=== PATIENT | male | born 1985 | race Caucasian/White ===

== ENCOUNTER 2018-07-29 17:26 | Emergency (ER) | payer MEDICAID ==
[~2018-07-29] VITALS: Ht 157.5 cm; Wt 66.0 kg
[2018-07-29] MEDS ORDERED: hyDROXYzine 50 mg/ml injection ***IM only IM ONE (17:55)
[2018-07-29 18:16] VITALS: BP 149/89
[2018-07-30] MEDS ORDERED: PALI117D IM (10:06)
== END 2018-07-29 18:17 | disposition home or self-care (01) ==
LOC: ER 17:27
DX: F41.9 Anxiety disorder, unspecified (principal); F12.90 Cannabis use, unspecified, uncomplicated; F15.90 Other stimulant use, unspecified, uncomplicated; F20.9 Schizophrenia, unspecified; Z98.890 Other specified postprocedural states; Z56.0 Unemployment, unspecified; Z88.0 Allergy status to penicillin; Z79.899 Other long term (current) drug therapy
CPT/HCPCS: 96372; 99284; J3410

== ENCOUNTER 2018-07-30 09:42 | Emergency (ER) | payer MEDICAID ==
[~2018-07-30] VITALS: Ht 157.5 cm; Wt 65.8 kg
[2018-07-30] MEDS ORDERED: PALI117D IM (10:06)
[2018-07-30 10:37] LABS: BASOPHILS % (AUTO) 0.4 % (0-1); EOSINOPHILS # (AUTO) 0.1 X10'3 (0-0.9); EOSINOPHILS % (AUTO) 1.2 % (0-6); HEMATOCRIT 40.3 % (42.0-52.0); HEMOGLOBIN 13.8 g/dl (14.0-17.9); LYMPHOCYTES # (AUTO) 1.2 X10'3 (1.1-4.8); LYMPHOCYTES % (AUTO) 20.4 % (21-51); MEAN CORPUSCULAR HEMOGLOBIN 30.2 PG (27.0-31.0); MEAN CORPUSCULAR HGB CONC 34.2 % (33.0-36.5); MEAN CORPUSCULAR VOLUME 88.3 FL (78-98); MEAN PLATELET VOLUME 8.2 FL (7.4-10.4); MONOCYTES # (AUTO) 0.8 X10'3 (0-0.9); MONOCYTES % (AUTO) 13.6 % (2-12); NEUTROPHILS # (AUTO) 3.7 X10'3 (1.8-7.7); NEUTROPHILS % (AUTO) 64.4 % (42-75); PLATELET COUNT 268 X10'3 (140-440); RED BLOOD COUNT 4.56 X10'6 (4.70-6.10); RED CELL DISTRIBUTION WIDTH 13.1 % (11.5-14.5); WHITE BLOOD COUNT 5.7 X10'3 (4.5-11.0)
[2018-07-30 10:49] LABS: ALANINE AMINOTRANSFERASE 30 U/L (12-78); ALBUMIN 3.9 G/DL (3.4-5.0); ALKALINE PHOSPHATASE 73 IU/L (46-116); ANION GAP 9 (8-16); ASPARTATE AMINO TRANSFERASE 28 U/L (10-37); BILIRUBIN,TOTAL 0.4 MG/DL (0.1-1.0); BLOOD UREA NITROGEN 18 MG/DL (7-18); BUN/CREATININE RATIO 18.9 (5.4-32.0); CALCIUM 8.5 MG/DL (8.5-10.1); CHLORIDE 100 MMOL/L (99-107); CREATININE 0.95 MG/DL (0.60-1.10); GLUCOSE 85 MG/DL (70-104); POTASSIUM 4.1 MMOL/L (3.5-5.1); SODIUM 138 MMOL/L (135-145); TOTAL PROTEIN 7.7 G/DL (6.4-8.2); eGFR > 90 ML/MIN
[2018-07-30 10:52] LABS: URINE AMPHETAMINE SCREEN NEGATIVE (Neg); URINE BARBITUATE SCREEN NEGATIVE (Neg); URINE BENZODIAZEPINES SCREEN NEGATIVE (Neg); URINE CANNABINOID SCREEN POSITIVE (Neg); URINE COCAINE SCREEN NEGATIVE (Neg); URINE METHADONE SCREEN NEGATIVE (Neg); URINE OPIATE SCREEN NEGATIVE (Neg); URINE PHENCYCLIDINE SCREEN NEGATIVE (Neg)
[2018-07-30 10:59] LABS: ETHANOL < 0.010 GM/DL (0.0-0.010)
[2018-07-31] MEDS ORDERED: ESCI10TA PO (08:15)
[2018-07-31] MEDS ORDERED: LURA40TA3 PO (08:15)
[2018-07-31] MEDS: citalopram 20mg tablet PO SCH (08:47)
[2018-07-31] MEDS: lurasidone 20mg tablet PO SCH (08:48)
[2018-07-31 16:21] LABS: CLARITY,URINE CLEAR (Clear); COLOR,URINE YELLOW (Yellow); GLUCOSE, URINE NEGATIVE (Neg); KETONES,URINE NEGATIVE (Neg); LEUKOCYTE ESTERASE ,URINE NEGATIVE (Neg); NITRITES, URINE NEGATIVE (Neg); OCCULT BLOOD,URINE NEGATIVE (Neg); PH,URINE 6.5 (4.8-8.0); PROTEIN,URINE NEGATIVE (Neg); UROBILINOGEN,URINE 0.2 E.U/dL (0.2-1.0)
[2018-07-31 16:22] LABS: UA COLLECTION TYPE NON-SPECIFIED
[2018-08-01] MEDS: lurasidone 20mg tablet PO SCH (08:31)
[2018-08-01] MEDS: citalopram 20mg tablet PO SCH (08:31)
[2018-08-02] MEDS: citalopram 20mg tablet PO SCH (08:20)
[2018-08-02] MEDS: lurasidone 20mg tablet PO SCH (08:20)
[2018-08-02 11:27] VITALS: BP 105/53
== END 2018-08-02 11:33 ==
LOC: ER 09:42
DX: R45.851 Suicidal ideations (principal); F41.9 Anxiety disorder, unspecified; F32.9 Major depressive disorder, single episode, unspecified; F20.9 Schizophrenia, unspecified; F12.90 Cannabis use, unspecified, uncomplicated; F15.90 Other stimulant use, unspecified, uncomplicated; Z98.890 Other specified postprocedural states; Z59.0 Homelessness; Z56.0 Unemployment, unspecified; Z88.0 Allergy status to penicillin; Z79.899 Other long term (current) drug therapy
CPT/HCPCS: 36415; 80053; 80305; 80320; 81003; 84443; 85025; 99285

== ENCOUNTER 2018-08-24 14:17 | Emergency (ER) | payer MEDICAID ==
[~2018-08-24 14:17] MED LIST: ESCI10TA PO; LURA40TA3 PO; PALI117D IM
== END 2018-08-24 16:00 | disposition left against medical advice (07) ==
LOC: ER 14:17
DX: F41.9 Anxiety disorder, unspecified (principal); Z53.21 Procedure and treatment not carried out due to patient leaving prior to being seen by health care provider

== ENCOUNTER 2018-08-24 19:38 | Emergency (ER) | payer MEDICAID ==
[~2018-08-24] VITALS: Ht 157.5 cm; Wt 67.0 kg
[2018-08-24 19:48] VITALS: BP 127/91
== END 2018-08-24 22:55 | disposition left against medical advice (07) ==
LOC: ER 19:38
DX: F41.9 Anxiety disorder, unspecified (principal); Z53.21 Procedure and treatment not carried out due to patient leaving prior to being seen by health care provider

== ENCOUNTER 2018-08-29 02:09 | Emergency (ER) | payer MEDICAID ==
[~2018-08-29] VITALS: Ht 157.5 cm; Wt 67.0 kg
[2018-08-29 02:25] VITALS: BP 138/87
[2018-08-29 03:22] LABS: BASOPHILS % (AUTO) 0.2 % (0-1); EOSINOPHILS # (AUTO) 0.2 X10'3 (0-0.9); EOSINOPHILS % (AUTO) 3.3 % (0-6); HEMATOCRIT 38.8 % (42.0-52.0); HEMOGLOBIN 13.4 g/dl (14.0-17.9); LYMPHOCYTES # (AUTO) 1.8 X10'3 (1.1-4.8); LYMPHOCYTES % (AUTO) 33.6 % (21-51); MEAN CORPUSCULAR HEMOGLOBIN 30.3 PG (27.0-31.0); MEAN CORPUSCULAR HGB CONC 34.4 % (33.0-36.5); MEAN CORPUSCULAR VOLUME 88.1 FL (78-98); MEAN PLATELET VOLUME 8.1 FL (7.4-10.4); MONOCYTES # (AUTO) 0.7 X10'3 (0-0.9); NEUTROPHILS # (AUTO) 2.7 X10'3 (1.8-7.7); NEUTROPHILS % (AUTO) 49.9 % (42-75); PLATELET COUNT 272 X10'3 (140-440); RED BLOOD COUNT 4.41 X10'6 (4.70-6.10); RED CELL DISTRIBUTION WIDTH 13.3 % (11.5-14.5); WHITE BLOOD COUNT 5.4 X10'3 (4.5-11.0)
[2018-08-29 03:23] LABS: CLARITY,URINE CLEAR (Clear); COLOR,URINE YELLOW (Yellow); GLUCOSE, URINE NEGATIVE (Neg); KETONES,URINE NEGATIVE (Neg); LEUKOCYTE ESTERASE ,URINE NEGATIVE (Neg); NITRITES, URINE NEGATIVE (Neg); OCCULT BLOOD,URINE NEGATIVE (Neg); PROTEIN,URINE NEGATIVE (Neg); UROBILINOGEN,URINE 0.2 E.U/dL (0.2-1.0)
[2018-08-29 03:30] LABS: UA COLLECTION TYPE CLN CATCH MIDSTREAM
[2018-08-29 03:35] LABS: URINE AMPHETAMINE SCREEN NEGATIVE (Neg); URINE BARBITUATE SCREEN NEGATIVE (Neg); URINE BENZODIAZEPINES SCREEN NEGATIVE (Neg); URINE CANNABINOID SCREEN NEGATIVE (Neg); URINE COCAINE SCREEN NEGATIVE (Neg); URINE METHADONE SCREEN NEGATIVE (Neg); URINE OPIATE SCREEN NEGATIVE (Neg); URINE PHENCYCLIDINE SCREEN NEGATIVE (Neg)
[2018-08-29 03:46] LABS: ALANINE AMINOTRANSFERASE 22 U/L (12-78); ALBUMIN 3.8 G/DL (3.4-5.0); ALKALINE PHOSPHATASE 67 IU/L (46-116); ANION GAP 5 (8-16); ASPARTATE AMINO TRANSFERASE 22 U/L (10-37); BILIRUBIN,TOTAL 0.3 MG/DL (0.1-1.0); BLOOD UREA NITROGEN 11 MG/DL (7-18); BUN/CREATININE RATIO 13.9 (5.4-32.0); CALCIUM 9.1 MG/DL (8.5-10.1); CHLORIDE 101 MMOL/L (99-107); CREATININE 0.79 MG/DL (0.60-1.10); GLUCOSE 95 MG/DL (70-104); POTASSIUM 3.7 MMOL/L (3.5-5.1); SODIUM 134 MMOL/L (135-145); TOTAL CARBON DIOXIDE 27.8 MMOL/L (24-32); TOTAL PROTEIN 7.5 G/DL (6.4-8.2); eGFR > 90 ML/MIN
[2018-08-29] MEDS ORDERED: LORazepam 1 MG tablet PO ONE (03:50)
[2018-08-29 03:53] LABS: ETHANOL < 0.010 GM/DL (0.0-0.010)
== END 2018-08-29 04:41 | disposition home or self-care (01) ==
LOC: ER 02:10
DX: F20.9 Schizophrenia, unspecified (principal); F32.9 Major depressive disorder, single episode, unspecified; F19.10 Other psychoactive substance abuse, uncomplicated; R45.851 Suicidal ideations; F41.9 Anxiety disorder, unspecified; F12.90 Cannabis use, unspecified, uncomplicated; F15.90 Other stimulant use, unspecified, uncomplicated; Z59.0 Homelessness; Z56.0 Unemployment, unspecified; Z88.0 Allergy status to penicillin; Z79.899 Other long term (current) drug therapy
CPT/HCPCS: 36415; 80053; 80305; 80320; 81003; 84443; 85025; 99284

== ENCOUNTER 2018-08-30 06:39 | Emergency (ER) | payer MEDICAID ==
[~2018-08-30] VITALS: Ht 157.5 cm; Wt 65.9 kg
[2018-08-30 10:35] LABS: URINE AMPHETAMINE SCREEN NEGATIVE (Neg); URINE BARBITUATE SCREEN NEGATIVE (Neg); URINE BENZODIAZEPINES SCREEN NEGATIVE (Neg); URINE CANNABINOID SCREEN NEGATIVE (Neg); URINE COCAINE SCREEN NEGATIVE (Neg); URINE METHADONE SCREEN NEGATIVE (Neg); URINE OPIATE SCREEN NEGATIVE (Neg); URINE PHENCYCLIDINE SCREEN NEGATIVE (Neg)
== END 2018-08-30 15:50 | disposition home or self-care (01) ==
LOC: ER 06:39
DX: F20.9 Schizophrenia, unspecified (principal); F32.9 Major depressive disorder, single episode, unspecified; R45.851 Suicidal ideations; F41.9 Anxiety disorder, unspecified; F12.90 Cannabis use, unspecified, uncomplicated; F15.90 Other stimulant use, unspecified, uncomplicated; Z59.0 Homelessness; Z56.0 Unemployment, unspecified; Z98.890 Other specified postprocedural states; Z88.0 Allergy status to penicillin; Z79.899 Other long term (current) drug therapy
CPT/HCPCS: 80305; 99285

== ENCOUNTER 2018-09-02 13:06 | Emergency (ER) | payer MEDICAID ==
[~2018-09-02] VITALS: Ht 157.5 cm; Wt 65.9 kg
[2018-09-02 13:32] VITALS: BP 133/84
[2018-09-02] MEDS ORDERED: ondansetron 4mg rapidly disintigrating tab PO ONE (15:50)
[2018-09-02] MEDS ORDERED: MAGN296S50 PO (15:51)
[2018-09-02] MEDS ORDERED: BISA-155 PO (15:51)
[2018-09-02] MEDS ORDERED: ONDA4TAB9 SL (15:51)
== END 2018-09-02 16:05 | disposition home or self-care (01) ==
LOC: ER 13:06
DX: R10.84 Generalized abdominal pain (principal); R11.2 Nausea with vomiting, unspecified; Z59.0 Homelessness; Z56.0 Unemployment, unspecified; Z98.890 Other specified postprocedural states; Z88.0 Allergy status to penicillin; Z79.899 Other long term (current) drug therapy
CPT/HCPCS: 99283

== ENCOUNTER 2018-09-03 08:30 | Emergency (ER) | payer MEDICAID ==
[~2018-09-03] VITALS: Ht 157.5 cm; Wt 66.2 kg
[~2018-09-03 08:30] MED LIST changes: +BISA-155 PO; +MAGN296S50 PO; +ONDA4TAB9 SL
[2018-09-03 09:27] LABS: BASOPHILS % (AUTO) 0.2 % (0-1); EOSINOPHILS # (AUTO) 0.1 X10'3 (0-0.9); EOSINOPHILS % (AUTO) 2.6 % (0-6); HEMATOCRIT 38.7 % (42.0-52.0); HEMOGLOBIN 13.1 g/dl (14.0-17.9); LYMPHOCYTES # (AUTO) 1.1 X10'3 (1.1-4.8); LYMPHOCYTES % (AUTO) 30.2 % (21-51); MEAN CORPUSCULAR HEMOGLOBIN 29.9 PG (27.0-31.0); MEAN CORPUSCULAR HGB CONC 33.9 % (33.0-36.5); MEAN CORPUSCULAR VOLUME 88.3 FL (78-98); MEAN PLATELET VOLUME 8.3 FL (7.4-10.4); MONOCYTES # (AUTO) 0.7 X10'3 (0-0.9); MONOCYTES % (AUTO) 18.7 % (2-12); NEUTROPHILS # (AUTO) 1.8 X10'3 (1.8-7.7); NEUTROPHILS % (AUTO) 48.3 % (42-75); PLATELET COUNT 262 X10'3 (140-440); RED BLOOD COUNT 4.38 X10'6 (4.70-6.10); RED CELL DISTRIBUTION WIDTH 13.1 % (11.5-14.5); WHITE BLOOD COUNT 3.7 X10'3 (4.5-11.0)
[2018-09-03 09:43] LABS: ALANINE AMINOTRANSFERASE 24 U/L (12-78); ALBUMIN 3.8 G/DL (3.4-5.0); ALBUMIN/GLOBULIN RATIO 1.1 (1.1-1.5); ALKALINE PHOSPHATASE 60 IU/L (46-116); ANION GAP 7 (8-16); ASPARTATE AMINO TRANSFERASE 15 U/L (10-37); BILIRUBIN,TOTAL 0.2 MG/DL (0.1-1.0); BLOOD UREA NITROGEN 10 MG/DL (7-18); BUN/CREATININE RATIO 11.6 (5.4-32.0); CALCIUM 8.7 MG/DL (8.5-10.1); CHLORIDE 102 MMOL/L (99-107); CREATININE 0.86 MG/DL (0.60-1.10); ETHANOL < 0.010 GM/DL (0.0-0.010); GLUCOSE 87 MG/DL (70-104); POTASSIUM 3.8 MMOL/L (3.5-5.1); SODIUM 138 MMOL/L (135-145); TOTAL CARBON DIOXIDE 29.5 MMOL/L (24-32); TOTAL PROTEIN 7.3 G/DL (6.4-8.2); eGFR > 90 ML/MIN
[2018-09-03 10:44] LABS: URINE AMPHETAMINE SCREEN NEGATIVE (Neg); URINE BARBITUATE SCREEN NEGATIVE (Neg); URINE BENZODIAZEPINES SCREEN NEGATIVE (Neg); URINE CANNABINOID SCREEN NEGATIVE (Neg); URINE COCAINE SCREEN NEGATIVE (Neg); URINE METHADONE SCREEN NEGATIVE (Neg); URINE OPIATE SCREEN NEGATIVE (Neg); URINE PHENCYCLIDINE SCREEN NEGATIVE (Neg)
[2018-09-03 18:06] LABS: CLARITY,URINE CLEAR (Clear); COLOR,URINE YELLOW (Yellow); GLUCOSE, URINE NEGATIVE (Neg); KETONES,URINE NEGATIVE (Neg); LEUKOCYTE ESTERASE ,URINE NEGATIVE (Neg); NITRITES, URINE NEGATIVE (Neg); OCCULT BLOOD,URINE NEGATIVE (Neg); PROTEIN,URINE NEGATIVE (Neg); UROBILINOGEN,URINE 0.2 E.U/dL (0.2-1.0)
[2018-09-03 18:09] LABS: UA COLLECTION TYPE NON-SPECIFIED
[2018-09-03] MEDS ORDERED: diphenhydrAMINE 25mg capsule PO ONE (19:40)
[2018-09-03] MEDS ORDERED: ibuprofen 200mg tablet PO ONE (20:15)
[2018-09-04 11:26] VITALS: BP 116/44
== END 2018-09-04 09:45 ==
LOC: ER 08:31
DX: F29 Unspecified psychosis not due to a substance or known physiological condition (principal); F41.9 Anxiety disorder, unspecified; F32.9 Major depressive disorder, single episode, unspecified; F20.9 Schizophrenia, unspecified; Z88.0 Allergy status to penicillin; Z56.0 Unemployment, unspecified; Z59.0 Homelessness
CPT/HCPCS: 36415; 80053; 80305; 80320; 81003; 84443; 85025; 99285; Q0163

== ENCOUNTER 2018-10-29 08:59 | Emergency (ER) | payer MEDICAID ==
[~2018-10-29] VITALS: Ht 154.9 cm; Wt 65.0 kg
[~2018-10-29 08:59] MED LIST changes: -BISA-155 PO; -ESCI10TA PO; -LURA40TA3 PO; -MAGN296S50 PO; -ONDA4TAB9 SL
[2018-10-29] MEDS ORDERED: DIPH25CA46 PO (09:37)
[2018-10-29] MEDS ORDERED: ARIP400S2 IM (09:39)
[2018-10-29] MEDS ORDERED: BENZ1TAB7 PO (09:39)
--- NOTE | 2018-10-29 09:53 | NUR ---
patient on bed awake,room checked,patient pleasant to RN.
--- NOTE | 2018-10-29 10:06 | NUR ---
patient aware that ua is needed.
[2018-10-29 10:20] LABS: BASOPHILS % (AUTO) 0.2 % (0-1); EOSINOPHILS # (AUTO) 0.1 X10'3 (0-0.9); EOSINOPHILS % (AUTO) 2.2 % (0-6); HEMATOCRIT 35.9 % (42.0-52.0); HEMOGLOBIN 12.4 g/dl (14.0-17.9); LYMPHOCYTES # (AUTO) 0.9 X10'3 (1.1-4.8); LYMPHOCYTES % (AUTO) 22.2 % (21-51); MEAN CORPUSCULAR HEMOGLOBIN 30.5 PG (27.0-31.0); MEAN CORPUSCULAR HGB CONC 34.6 % (33.0-36.5); MEAN CORPUSCULAR VOLUME 88.2 FL (78-98); MEAN PLATELET VOLUME 8.4 FL (7.4-10.4); MONOCYTES # (AUTO) 0.5 X10'3 (0-0.9); MONOCYTES % (AUTO) 11.3 % (2-12); NEUTROPHILS # (AUTO) 2.6 X10'3 (1.8-7.7); NEUTROPHILS % (AUTO) 64.1 % (42-75); PLATELET COUNT 242 X10'3 (140-440); RED BLOOD COUNT 4.07 X10'6 (4.70-6.10); RED CELL DISTRIBUTION WIDTH 13.2 % (11.5-14.5); WHITE BLOOD COUNT 4.1 X10'3 (4.5-11.0)
[2018-10-29 10:39] LABS: ALANINE AMINOTRANSFERASE 19 U/L (12-78); ALBUMIN 3.7 G/DL (3.4-5.0); ALBUMIN/GLOBULIN RATIO 1.1 (1.1-1.5); ALKALINE PHOSPHATASE 56 IU/L (46-116); ANION GAP 8 (8-16); ASPARTATE AMINO TRANSFERASE 12 U/L (10-37); BILIRUBIN,TOTAL 0.4 MG/DL (0.1-1.0); BLOOD UREA NITROGEN 20 MG/DL (7-18); BUN/CREATININE RATIO 19.2 (5.4-32.0); CALCIUM 8.3 MG/DL (8.5-10.1); CHLORIDE 103 MMOL/L (99-107); CREATININE 1.04 MG/DL (0.60-1.10); GLUCOSE 87 MG/DL (70-104); POTASSIUM 4.3 MMOL/L (3.5-5.1); SODIUM 137 MMOL/L (135-145); TOTAL CARBON DIOXIDE 26.5 MMOL/L (24-32); eGFR 83 ML/MIN
[2018-10-29 10:46] LABS: ETHANOL < 0.010 GM/DL (0.0-0.010)
--- NOTE | 2018-10-29 11:12 | NUR ---
PT UNABLE TO PROVIDE URINE SAMPLE AT THIS TIME
--- NOTE | 2018-10-29 11:51 | NUR ---
Tele Psych completed,spoke to Dr. Conley and recommending seroquel at bedtime and ativan q4 hr prn.Md to fax the order.Patient remains calm and cooperative to staff,still pending ua.
[2018-10-29] MEDS ORDERED: LORazepam 1 MG tablet PO PRN (12:05)
[2018-10-29] MEDS ORDERED: nicotine 14mg patch - 24hr TD ONE (12:05)
[2018-10-29 13:15] LABS: URINE AMPHETAMINE SCREEN NEGATIVE (Neg); URINE BARBITUATE SCREEN NEGATIVE (Neg); URINE BENZODIAZEPINES SCREEN NEGATIVE (Neg); URINE CANNABINOID SCREEN POSITIVE (Neg); URINE COCAINE SCREEN NEGATIVE (Neg); URINE METHADONE SCREEN NEGATIVE (Neg); URINE OPIATE SCREEN NEGATIVE (Neg); URINE PHENCYCLIDINE SCREEN NEGATIVE (Neg)
--- NOTE | 2018-10-29 14:13 | NUR ---
PATIENT ASLEEP AT THIS TIME.
[2018-10-29] MEDS: QUEtiapine 25mg tablet PO SCH (16:20)
--- NOTE | 2018-10-29 18:39 | NUR ---
Pt escorted by PCT Will from ed16 to OF28, with dinner ani. AARON Hill given report.
--- NOTE | 2018-10-29 18:40 | NUR ---
Rec'd patient to ER OF 28, report rec'd from AARON Durant, assumed care at this time.
[2018-10-29] MEDS ORDERED: IBUP-1984 PO (18:53)
[2018-10-29] MEDS ORDERED: ACET-2119 PO (18:53)
--- NOTE | 2018-10-29 19:24 | NUR ---
Laying in bed, awake, denies needs currently. Will continue to monitor.
[2018-10-29] MEDS ORDERED: diphenhydrAMINE 25mg capsule PO PRN (20:15)
[2018-10-29] MEDS ORDERED: acetaminophen 325mg tablet PO PRN (20:15)
[2018-10-29] MEDS ORDERED: ibuprofen tablet 400 MG TABLET PO PRN (20:15)
[2018-10-29] MEDS ORDERED: benztropine 1mg tablet PO ONE (20:31)
[2018-10-29] MEDS: quetiapine 100mg tablet PO SCH (20:37)
--- NOTE | 2018-10-29 21:07 | NUR ---
Laying in bed, resting on side with eyes closed, resp even and unlabored, appearing to sleep without new concerns or issues, will continue to monitor.
--- NOTE | 2018-10-29 22:11 | NUR ---
Resting in bed with eyes closed, appearing to sleep without new concerns or issues. Will continue to monitor.
--- NOTE | 2018-10-29 23:09 | NUR ---
Resting in bed with eyes closed, appearing to sleep without new concerns or issues. Will continue to monitor.
--- NOTE | 2018-10-30 00:44 | NUR ---
Resting in bed, eyes closed, appearing to sleep. No new issues or concerns noted. Will continue to monitor for changes.
--- NOTE | 2018-10-30 01:36 | NUR ---
Appearing to sleep, in bed with eyes closed, resp are even and unlabored. No new concerns or issues noted, will continue to monitor.
--- NOTE | 2018-10-30 02:19 | NUR ---
Appearing to sleep, in bed with eyes closed, resp are even and unlabored. No new concerns or issues noted, will continue to monitor.
--- NOTE | 2018-10-30 04:00 | NUR ---
Appears to sleep comfortably with eyes closed, occasionaly waken from coughing, but back to sleep. Will continue to monitor.
--- NOTE | 2018-10-30 07:08 | NUR ---
Assumed care, report received from Sergio WALKER. Patient sleeping comfortably. No distress noted.
[2018-10-30] MEDS: benztropine 1mg tablet PO SCH ×2 (07:59→21:15)
--- NOTE | 2018-10-30 11:54 | NUR ---
Patient woke up to eat breakfast, then back to sleep.
--- NOTE | 2018-10-30 12:42 | NUR ---
Patient awake, hungry. Patient denies SI, A/V/H. States if he were released he would not kill himself. Patient is not very talkative.
--- NOTE | 2018-10-30 13:51 | NUR ---
Patient came up to RN and told me that auditory hallucinations have come back and they are telling him to kill himself. He does not feel safe leaving facility.
[2018-10-30] MEDS: QUEtiapine 25mg tablet PO SCH (16:22)
--- NOTE | 2018-10-30 16:25 | NUR ---
Patient has been sleeping most of the day. Calm, cooperative and medication compliant.
--- NOTE | 2018-10-30 17:54 | NUR ---
Patient is eating snacks in bed. No S/S of distress.
--- NOTE | 2018-10-30 18:03 | NUR ---
JESSICA advised RN that patient was at [facility] for two months and came to [facility] the next day.
--- NOTE | 2018-10-30 19:00 | NUR ---
Patient sleeping in bed, in view of nursing station. Q15 minute rounding being done for patient safety.
[2018-10-30] MEDS: quetiapine 100mg tablet PO SCH (21:15)
--- NOTE | 2018-10-30 22:00 | NUR ---
This patient awoke and at dinner earlier. He then ambulated to the bathroom and back without problem. Patient is choosing not to converse with staff.
--- NOTE | 2018-10-31 03:30 | NUR ---
Patient repositions in bed on his own. He is up to the bathroom. Patient is well oriented. He complains of depression, "I have it everyday of my life." Patient states he has S/I, there is no plan. He denies hearing voices. Patient returns to sleep.
[2018-10-31 05:30] VITALS: BP 113/69
[2018-10-31] MEDS: benztropine 1mg tablet PO SCH (08:34)
--- NOTE | 2018-10-31 14:37 | NUR ---
Patient discharged to [facility] for inpatient mental health with his belongings. Escorted by [employer] driver and security to vehicle.
[2018-11-10] MEDS ORDERED: aripiprazole 400mg suspension ER syringe IM SCH (08:00)
== END 2018-10-31 15:49 ==
LOC: ER 09:01
DX: F20.9 Schizophrenia, unspecified (principal); F41.9 Anxiety disorder, unspecified; F32.9 Major depressive disorder, single episode, unspecified; Z76.0 Encounter for issue of repeat prescription; Z56.0 Unemployment, unspecified; Z88.0 Allergy status to penicillin
CPT/HCPCS: 36415; 80053; 80305; 80320; 84443; 85025; 99285; Q0163

== ENCOUNTER 2018-11-02 17:10 | Emergency (ER) | payer MEDICAID ==
[~2018-11-02] VITALS: Ht 157.5 cm; Wt 66.0 kg
[~2018-11-02 17:10] MED LIST changes: +ACET-2119 PO; +ARIP400S2 IM; +BENZ1TAB7 PO; +DIPH25CA46 PO; +IBUP-1984 PO
[2018-11-02 17:14] VITALS: BP 131/68
[2018-11-02] MEDS ORDERED: diphenhydrAMINE 50 mg/ml inj IM ONE (17:40)
== END 2018-11-02 18:06 | disposition home or self-care (01) ==
LOC: ER 17:10
DX: F22 Delusional disorders (principal); F41.9 Anxiety disorder, unspecified; F32.9 Major depressive disorder, single episode, unspecified; F20.9 Schizophrenia, unspecified; Z98.890 Other specified postprocedural states; Z56.0 Unemployment, unspecified; Z88.0 Allergy status to penicillin; Z79.899 Other long term (current) drug therapy
CPT/HCPCS: 99284; J1200

== ENCOUNTER 2018-11-04 12:54 | Emergency (ER) | payer MEDICAID ==
[~2018-11-04] VITALS: Ht 157.5 cm; Wt 64.5 kg
[~2018-11-04 12:54] MED LIST changes: -PALI117D IM
[2018-11-04 13:04] VITALS: BP 161/77
[2018-11-04 14:07] LABS: D-DIMER 0.36 MG/L FEU (0-0.50)
--- NOTE | 2018-11-04 14:28 | NUR ---
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
== END 2018-11-04 14:29 | disposition home or self-care (01) ==
LOC: ER 12:55
DX: R07.89 Other chest pain (principal); F31.9 Bipolar disorder, unspecified; F41.9 Anxiety disorder, unspecified; F20.9 Schizophrenia, unspecified; Z88.0 Allergy status to penicillin; Z79.899 Other long term (current) drug therapy; Z56.0 Unemployment, unspecified
CPT/HCPCS: 36415; 84484; 85379; 93005; 99284

== ENCOUNTER 2018-11-04 21:00 | Emergency (ER) | payer MEDICAID ==
[~2018-11-04] VITALS: Ht 157.5 cm; Wt 61.0 kg
--- NOTE | 2018-11-04 21:58 | NUR ---
SPOKE [facility] "ANGÉLICA", STATES PATIENT WELL KNOWN TO THEM AND HAS PLACEMENT FOR WEDNESDAY. WAS SEEN AND RELEASED FROM [facility] TODAY AT 12 PM. ANGÉLICA REPORTS EARLIEST HE CAN BE SEEN IS IN THE MORNING.
--- NOTE | 2018-11-04 22:20 | NUR ---
SOC TELE PSYCH INTIATED
[2018-11-04 22:55] LABS: CLARITY,URINE CLEAR (Clear); COLOR,URINE YELLOW (Yellow); GLUCOSE, URINE NEGATIVE (Neg); KETONES,URINE NEGATIVE (Neg); LEUKOCYTE ESTERASE ,URINE NEGATIVE (Neg); NITRITES, URINE NEGATIVE (Neg); OCCULT BLOOD,URINE NEGATIVE (Neg); PROTEIN,URINE NEGATIVE (Neg); UROBILINOGEN,URINE 0.2 E.U/dL (0.2-1.0)
[2018-11-04 22:59] LABS: URINE AMPHETAMINE SCREEN NEGATIVE (Neg); URINE BARBITUATE SCREEN NEGATIVE (Neg); URINE BENZODIAZEPINES SCREEN NEGATIVE (Neg); URINE CANNABINOID SCREEN NEGATIVE (Neg); URINE COCAINE SCREEN NEGATIVE (Neg); URINE METHADONE SCREEN NEGATIVE (Neg); URINE OPIATE SCREEN NEGATIVE (Neg); URINE PHENCYCLIDINE SCREEN NEGATIVE (Neg)
[2018-11-04 23:02] LABS: UA COLLECTION TYPE CLN CATCH MIDSTREAM
[2018-11-05 00:31] VITALS: BP 133/88
== END 2018-11-05 00:33 | disposition home or self-care (01) ==
LOC: ER 21:01
DX: F20.9 Schizophrenia, unspecified (principal); F41.9 Anxiety disorder, unspecified; F32.9 Major depressive disorder, single episode, unspecified; F17.200 Nicotine dependence, unspecified, uncomplicated; Z56.0 Unemployment, unspecified; Z88.0 Allergy status to penicillin
CPT/HCPCS: 80305; 81003; 99284

== ENCOUNTER 2018-11-21 10:12 | Emergency (ER) | payer MEDICAID ==
[~2018-11-21] VITALS: Ht 157.5 cm; Wt 63.0 kg
--- NOTE | 2018-11-21 12:02 | NUR ---
Patient resting in bed, green scrubs on. Patient's legs restless, patient calm and cooperative. Patient denies any needs at this time.
[2018-11-21 12:11] LABS: BASOPHILS % (AUTO) 0.6 % (0-1); EOSINOPHILS # (AUTO) 0.2 X10'3 (0-0.9); EOSINOPHILS % (AUTO) 4.3 % (0-6); HEMATOCRIT 42.4 % (42.0-52.0); HEMOGLOBIN 14.3 g/dl (14.0-17.9); LYMPHOCYTES # (AUTO) 1.1 X10'3 (1.1-4.8); MEAN CORPUSCULAR HEMOGLOBIN 29.9 PG (27.0-31.0); MEAN CORPUSCULAR HGB CONC 33.6 g/dL (33.0-36.5); MEAN PLATELET VOLUME 8.4 FL (7.4-10.4); MONOCYTES # (AUTO) 0.6 X10'3 (0-0.9); NEUTROPHILS # (AUTO) 2.1 X10'3 (1.8-7.7); NEUTROPHILS % (AUTO) 54.1 % (42-75); PLATELET COUNT 249 X10'3 (140-440); RED BLOOD COUNT 4.77 X10'6 (4.70-6.10); RED CELL DISTRIBUTION WIDTH 12.8 % (11.5-14.5)
[2018-11-21 12:21] LABS: ALANINE AMINOTRANSFERASE 19 U/L (12-78); ALBUMIN/GLOBULIN RATIO 1.1 (1.1-1.5); ALKALINE PHOSPHATASE 61 IU/L (46-116); ANION GAP 8 (8-16); ASPARTATE AMINO TRANSFERASE 12 U/L (10-37); BILIRUBIN,TOTAL 0.4 MG/DL (0.1-1.0); BLOOD UREA NITROGEN 15 MG/DL (7-18); BUN/CREATININE RATIO 15.2 (5.4-32.0); CALCIUM 8.8 MG/DL (8.5-10.1); CHLORIDE 105 MMOL/L (99-107); CREATININE 0.99 MG/DL (0.60-1.10); ETHANOL < 0.010 GM/DL (0.0-0.010); GLUCOSE 116 MG/DL (70-104); POTASSIUM 4.3 MMOL/L (3.5-5.1); SODIUM 141 MMOL/L (135-145); TOTAL CARBON DIOXIDE 27.9 MMOL/L (24-32); TOTAL PROTEIN 7.8 G/DL (6.4-8.2); eGFR 88 ML/MIN
--- NOTE | 2018-11-21 12:45 | NUR ---
Patient sleeping in bed with lights dimmed. respirations even, no distress noted.
--- NOTE | 2018-11-21 13:13 | NUR ---
Patient sitting up in bed eating lunch. Report called to Kaelyn WALKER, patient being moved from room 10 to [facility]. Patient calm and cooperative.
--- NOTE | 2018-11-21 13:32 | NUR ---
Pt back to overflow. Report from [place]. Pt appears calm and cooperative.
[2018-11-21 13:49] LABS: URINE AMPHETAMINE SCREEN NEGATIVE (Neg); URINE BARBITUATE SCREEN NEGATIVE (Neg); URINE BENZODIAZEPINES SCREEN NEGATIVE (Neg); URINE CANNABINOID SCREEN POSITIVE (Neg); URINE COCAINE SCREEN NEGATIVE (Neg); URINE METHADONE SCREEN NEGATIVE (Neg); URINE OPIATE SCREEN NEGATIVE (Neg); URINE PHENCYCLIDINE SCREEN NEGATIVE (Neg)
[2018-11-21] MEDS ORDERED: ibuprofen tablet 400 MG TABLET PO PRN (13:50)
[2018-11-21] MEDS ORDERED: diphenhydrAMINE 25mg capsule PO PRN (13:50)
--- NOTE | 2018-11-21 15:48 | NUR ---
Laying in bed with no complaints. Pt has been calm and cooperative. Per Dr King, no telepsych needed.
--- NOTE | 2018-11-21 16:45 | NUR ---
PT IS IN BED, AWAKE, AWARE, NO S/S OF DISTRESS OBSERVED
[2018-11-21 17:48] VITALS: BP 114/60
--- NOTE | 2018-11-21 19:00 | NUR ---
assumed care of pt, did not recieve report, pt is in bed, supine, no s/s of agitation
[2018-11-21] MEDS ORDERED: benztropine 1mg tablet PO SCH (20:00)
[2018-12-10] MEDS ORDERED: aripiprazole 400mg suspension ER syringe IM SCH (13:50)
== END 2018-11-21 21:16 | disposition home or self-care (01) ==
LOC: ER 10:13
DX: F32.9 Major depressive disorder, single episode, unspecified (principal); F41.9 Anxiety disorder, unspecified; F20.9 Schizophrenia, unspecified; F12.90 Cannabis use, unspecified, uncomplicated; Z56.0 Unemployment, unspecified; Z88.0 Allergy status to penicillin
CPT/HCPCS: 36415; 80053; 80305; 80320; 85025; 99284; 99285

== ENCOUNTER 2018-12-04 11:56 | Emergency (ER) | payer MEDICAID ==
[~2018-12-04] VITALS: Ht 157.5 cm; Wt 64.0 kg
[~2018-12-04 11:56] MED LIST changes: -ACET-2119 PO
[2018-12-04 12:16] VITALS: BP 133/81
[2018-12-04] MEDS ORDERED: LORazepam 1 MG tablet PO ONE (13:00)
== END 2018-12-04 13:03 | disposition home or self-care (01) ==
LOC: ER 11:56
DX: F41.9 Anxiety disorder, unspecified (principal); F25.9 Schizoaffective disorder, unspecified; F32.9 Major depressive disorder, single episode, unspecified; F12.90 Cannabis use, unspecified, uncomplicated; Z56.0 Unemployment, unspecified; Z88.0 Allergy status to penicillin; Z79.899 Other long term (current) drug therapy
CPT/HCPCS: 99284

== ENCOUNTER 2019-01-28 21:44 | Emergency (ER) | payer MEDICAID ==
[~2019-01-28] VITALS: Ht 157.5 cm; Wt 63.9 kg
--- NOTE | 2019-01-28 23:46 | NUR ---
PTS HEART RATE AT 89, REGULAR. PT DENIES DRUG USE OF CONSUMPTION OF ALCOHOL OR ENREGY DRINKS TODAY.
[2019-01-29 00:49] LABS: ALANINE AMINOTRANSFERASE 16 U/L (12-78); ALBUMIN 3.5 G/DL (3.4-5.0); ALBUMIN/GLOBULIN RATIO 0.9 (1.1-1.5); ALKALINE PHOSPHATASE 58 IU/L (46-116); ANION GAP 11 (8-16); ASPARTATE AMINO TRANSFERASE 8 U/L (10-37); BILIRUBIN,TOTAL 0.3 MG/DL (0.1-1.0); BLOOD UREA NITROGEN 21 MG/DL (7-18); BUN/CREATININE RATIO 23.3 (5.4-32.0); CALCIUM 8.9 MG/DL (8.5-10.1); CHLORIDE 103 MMOL/L (99-107); GLUCOSE 95 MG/DL (70-104); POTASSIUM 3.8 MMOL/L (3.5-5.1); SODIUM 139 MMOL/L (135-145); TOTAL CARBON DIOXIDE 25.5 MMOL/L (24-32); TOTAL PROTEIN 7.4 G/DL (6.4-8.2); eGFR > 90 ML/MIN
[2019-01-29 00:55] LABS: BASOPHILS % (AUTO) 0.4 % (0-1); EOSINOPHILS # (AUTO) 0.4 X10'3 (0-0.9); EOSINOPHILS % (AUTO) 6.9 % (0-6); HEMATOCRIT 36.3 % (42.0-52.0); HEMOGLOBIN 12.3 g/dl (14.0-17.9); LYMPHOCYTES # (AUTO) 1.9 X10'3 (1.1-4.8); MEAN CORPUSCULAR HEMOGLOBIN 30.1 PG (27.0-31.0); MEAN CORPUSCULAR HGB CONC 33.9 g/dL (33.0-36.5); MEAN CORPUSCULAR VOLUME 88.7 FL (78-98); MEAN PLATELET VOLUME 8.7 FL (7.4-10.4); MONOCYTES # (AUTO) 0.9 X10'3 (0-0.9); MONOCYTES % (AUTO) 16.5 % (2-12); NEUTROPHILS # (AUTO) 2.1 X10'3 (1.8-7.7); NEUTROPHILS % (AUTO) 39.2 % (42-75); PLATELET COUNT 230 X10'3 (140-440); RED BLOOD COUNT 4.09 X10'6 (4.70-6.10); RED CELL DISTRIBUTION WIDTH 13.7 % (11.5-14.5); WHITE BLOOD COUNT 5.2 X10'3 (4.5-11.0)
[2019-01-29 01:09] VITALS: BP 125/74
== END 2019-01-29 01:10 | disposition home or self-care (01) ==
LOC: ER 21:45
DX: R00.2 Palpitations (principal); R07.9 Chest pain, unspecified; F17.200 Nicotine dependence, unspecified, uncomplicated; F12.90 Cannabis use, unspecified, uncomplicated; Z88.0 Allergy status to penicillin; Z79.899 Other long term (current) drug therapy; Z56.0 Unemployment, unspecified
CPT/HCPCS: 36415; 80053; 85025; 93005; 99284

== ENCOUNTER 2019-02-21 09:56 | Emergency (ER) | payer MEDICAID ==
[~2019-02-21] VITALS: Ht 157.5 cm; Wt 64.5 kg
[2019-02-21 10:01] VITALS: BP 121/84
[2019-02-21 10:31] LABS: BASOPHILS % (AUTO) 0.2 % (0-1); EOSINOPHILS # (AUTO) 0.2 X10'3 (0-0.9); HEMATOCRIT 39.2 % (42.0-52.0); HEMOGLOBIN 13.5 g/dl (14.0-17.9); LYMPHOCYTES # (AUTO) 1.2 X10'3 (1.1-4.8); MEAN CORPUSCULAR HEMOGLOBIN 30.6 PG (27.0-31.0); MEAN CORPUSCULAR HGB CONC 34.4 g/dL (33.0-36.5); MEAN CORPUSCULAR VOLUME 88.9 FL (78-98); MEAN PLATELET VOLUME 8.5 FL (7.4-10.4); MONOCYTES # (AUTO) 0.9 X10'3 (0-0.9); MONOCYTES % (AUTO) 11.6 % (2-12); NEUTROPHILS # (AUTO) 5.3 X10'3 (1.8-7.7); NEUTROPHILS % (AUTO) 69.2 % (42-75); PLATELET COUNT 223 X10'3 (140-440); RED BLOOD COUNT 4.41 X10'6 (4.70-6.10); RED CELL DISTRIBUTION WIDTH 13.5 % (11.5-14.5); WHITE BLOOD COUNT 7.7 X10'3 (4.5-11.0)
[2019-02-21 10:45] LABS: ALANINE AMINOTRANSFERASE 18 U/L (12-78); ALBUMIN 3.8 G/DL (3.4-5.0); ALBUMIN/GLOBULIN RATIO 0.9 (1.1-1.5); ALKALINE PHOSPHATASE 69 IU/L (46-116); ANION GAP 7 (8-16); ASPARTATE AMINO TRANSFERASE 12 U/L (10-37); BILIRUBIN,TOTAL 0.3 MG/DL (0.1-1.0); BLOOD UREA NITROGEN 17 MG/DL (7-18); BUN/CREATININE RATIO 21.3 (5.4-32.0); CALCIUM 8.9 MG/DL (8.5-10.1); CHLORIDE 102 MMOL/L (99-107); ETHANOL < 0.010 GM/DL (0.0-0.010); GLUCOSE 84 MG/DL (70-104); POTASSIUM 3.9 MMOL/L (3.5-5.1); SODIUM 138 MMOL/L (135-145); TOTAL CARBON DIOXIDE 28.9 MMOL/L (24-32); TOTAL PROTEIN 8.2 G/DL (6.4-8.2); eGFR > 90 ML/MIN
--- NOTE | 2019-02-21 11:10 | NUR ---
[place] Assessment: Patient reports that he initially came in due to A/H and S/I. He had no suicide attempt and never had a plan. He reports that he no longer has suicidal ideation and wants to go home so that he can take his medication. He reports that he is having some A/H but it is because he has not taken his medicine today. Recommendation: DC home with bus ticket. Patient denies S/I and has medications and services available already.
[2019-02-21 11:12] LABS: URINE AMPHETAMINE SCREEN NEGATIVE (Neg); URINE BARBITUATE SCREEN NEGATIVE (Neg); URINE BENZODIAZEPINES SCREEN NEGATIVE (Neg); URINE CANNABINOID SCREEN POSITIVE (Neg); URINE COCAINE SCREEN NEGATIVE (Neg); URINE METHADONE SCREEN NEGATIVE (Neg); URINE OPIATE SCREEN NEGATIVE (Neg); URINE PHENCYCLIDINE SCREEN NEGATIVE (Neg)
== END 2019-02-21 11:33 | disposition home or self-care (01) ==
LOC: ER 09:57
DX: R45.851 Suicidal ideations (principal); F41.9 Anxiety disorder, unspecified; F32.9 Major depressive disorder, single episode, unspecified; F20.9 Schizophrenia, unspecified; F12.90 Cannabis use, unspecified, uncomplicated; Z88.0 Allergy status to penicillin; Z79.899 Other long term (current) drug therapy; Z56.0 Unemployment, unspecified
CPT/HCPCS: 36415; 80053; 80305; 80320; 85025; 99284

== ENCOUNTER 2019-06-30 22:53 | Emergency (ER) | payer MEDICAID ==
[~2019-06-30] VITALS: Ht 157.5 cm; Wt 60.9 kg
[~2019-06-30 22:53] MED LIST changes: +ROBDML PO
[2019-06-30 23:04] VITALS: BP 116/83
[2019-06-30] MEDS ORDERED: BENZ1TAB7 PO ×2 (23:47→23:48)
== END 2019-07-01 00:02 | disposition home or self-care (01) ==
LOC: ER 22:53
DX: F41.9 Anxiety disorder, unspecified (principal); F31.9 Bipolar disorder, unspecified; F20.9 Schizophrenia, unspecified; F12.90 Cannabis use, unspecified, uncomplicated; Z56.0 Unemployment, unspecified; Z88.0 Allergy status to penicillin
CPT/HCPCS: 99283

== ENCOUNTER 2019-07-19 22:17 | Emergency (ER) | payer MEDICAID ==
[~2019-07-19] VITALS: Ht 157.5 cm; Wt 59.1 kg
[2019-07-19] MEDS ORDERED: ketorolac trometh. 30mg/ml inj. IM ONE (22:25)
[2019-07-19 23:22] VITALS: BP 122/90
== END 2019-07-19 23:18 | disposition home or self-care (01) ==
LOC: ER 22:17
DX: R07.89 Other chest pain (principal); R11.2 Nausea with vomiting, unspecified; F41.9 Anxiety disorder, unspecified; F31.9 Bipolar disorder, unspecified; F20.9 Schizophrenia, unspecified; F12.90 Cannabis use, unspecified, uncomplicated; Z56.0 Unemployment, unspecified; Z88.0 Allergy status to penicillin; Z98.890 Other specified postprocedural states; Z79.899 Other long term (current) drug therapy
CPT/HCPCS: 71045; 93005; 96372; 99283; J1885

== ENCOUNTER 2019-08-01 15:24 | Emergency (ER) | payer MEDICAID ==
[~2019-08-01] VITALS: Ht 157.5 cm; Wt 62.0 kg
[2019-08-01 15:31] VITALS: BP 136/91
[2019-08-01] MEDS ORDERED: LORazepam 1 MG tablet PO ONE (15:40)
[2019-08-01] MEDS ORDERED: LORA-269 PO (15:52)
[2019-08-01] MEDS ORDERED: BENZ1TAB7 PO (15:52)
== END 2019-08-01 16:13 | disposition home or self-care (01) ==
LOC: ER 15:25
DX: F25.9 Schizoaffective disorder, unspecified (principal); F41.9 Anxiety disorder, unspecified; G25.81 Restless legs syndrome; F31.9 Bipolar disorder, unspecified; F12.90 Cannabis use, unspecified, uncomplicated; F10.99 Alcohol use, unspecified with unspecified alcohol-induced disorder; Z56.0 Unemployment, unspecified; Z98.890 Other specified postprocedural states; Z88.0 Allergy status to penicillin; Z79.899 Other long term (current) drug therapy; Y90.9 Presence of alcohol in blood, level not specified
CPT/HCPCS: 99284

== ENCOUNTER 2019-09-06 08:49 | Emergency (ER) | payer MEDICAID ==
[~2019-09-06] VITALS: Ht 157.5 cm; Wt 60.5 kg
[~2019-09-06 08:49] MED LIST changes: +LORA-269 PO
[2019-09-06 08:52] VITALS: BP 117/45
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
== END 2019-09-06 09:23 | disposition home or self-care (01) ==
LOC: ER 08:50
DX: F41.9 Anxiety disorder, unspecified (principal); F31.9 Bipolar disorder, unspecified; F10.99 Alcohol use, unspecified with unspecified alcohol-induced disorder; Z91.19 Patient's noncompliance with other medical treatment and regimen; Z56.0 Unemployment, unspecified; Z98.890 Other specified postprocedural states; Z88.0 Allergy status to penicillin; Z79.899 Other long term (current) drug therapy; Y90.9 Presence of alcohol in blood, level not specified
CPT/HCPCS: 99283

== ENCOUNTER 2019-09-17 22:18 | Emergency (ER) | payer MEDICAID ==
[~2019-09-17] VITALS: Ht 157.5 cm; Wt 61.0 kg
[2019-09-17] MEDS ORDERED: benztropine 1mg tablet PO STA (22:51)
[2019-09-17] MEDS ORDERED: BENZ1TAB7 PO (22:55)
[2019-09-17] MEDS ORDERED: LORazepam 1 MG tablet PO ONE (22:55)
[2019-09-17 23:20] VITALS: BP 125/49
== END 2019-09-17 23:23 | disposition home or self-care (01) ==
LOC: ER 22:18
DX: G25.81 Restless legs syndrome (principal); F41.9 Anxiety disorder, unspecified; F31.9 Bipolar disorder, unspecified; F20.9 Schizophrenia, unspecified; F10.99 Alcohol use, unspecified with unspecified alcohol-induced disorder; F12.90 Cannabis use, unspecified, uncomplicated; Z76.0 Encounter for issue of repeat prescription; Z56.0 Unemployment, unspecified; Z88.0 Allergy status to penicillin; Z79.899 Other long term (current) drug therapy; Y90.9 Presence of alcohol in blood, level not specified
CPT/HCPCS: 99283

== ENCOUNTER 2019-11-18 19:19 | Emergency (ER) | payer MEDICAID | END 2019-11-18 21:22 | disposition left against medical advice (07) | LOC: ER 19:20 | DX: R10.9 Unspecified abdominal pain (principal); Z53.21 Procedure and treatment not carried out due to patient leaving prior to being seen by health care provider ==

== ENCOUNTER 2019-11-29 11:48 | Emergency (ER) | payer MEDICAID ==
[~2019-11-29] VITALS: Ht 157.5 cm; Wt 62.1 kg
[2019-11-29 11:54] VITALS: BP 137/55
[2019-11-29] MEDS ORDERED: LORazepam 1 MG tablet PO ONE (13:10)
[2019-11-29] MEDS ORDERED: HYDR-3686 PO (13:21)
== END 2019-11-29 13:51 | disposition home or self-care (01) ==
LOC: ER 11:51
DX: F41.9 Anxiety disorder, unspecified (principal); G47.00 Insomnia, unspecified; F31.9 Bipolar disorder, unspecified; F20.9 Schizophrenia, unspecified; F12.90 Cannabis use, unspecified, uncomplicated; Z72.89 Other problems related to lifestyle; Z56.0 Unemployment, unspecified; Z88.0 Allergy status to penicillin; Z79.899 Other long term (current) drug therapy
CPT/HCPCS: 99283

== ENCOUNTER 2020-04-04 22:32 | Emergency (ER) | payer MEDICAID ==
[~2020-04-04] VITALS: Ht 157.5 cm; Wt 65.9 kg
[2020-04-04 22:39] VITALS: BP 129/85
== END 2020-04-05 00:30 | disposition left against medical advice (07) ==
LOC: ER 22:32
DX: Z00.00 Encounter for general adult medical examination without abnormal findings (principal); Z53.21 Procedure and treatment not carried out due to patient leaving prior to being seen by health care provider

== ENCOUNTER 2020-11-16 15:26 | Emergency (ER) | payer MEDICAID ==
[~2020-11-16] VITALS: Ht 157.5 cm; Wt 66.0 kg
[2020-11-16 16:00] LABS: BASOPHILS # (AUTO) 0.1 X10'3 (0-0.2); BASOPHILS % (AUTO) 0.8 % (0-1); EOSINOPHILS # (AUTO) 0.2 X10'3 (0-0.9); EOSINOPHILS % (AUTO) 3.2 % (0-6); HEMATOCRIT 41.5 % (42.0-52.0); HEMOGLOBIN 14.2 g/dl (14.0-17.9); LYMPHOCYTES # (AUTO) 2.2 X10'3 (1.1-4.8); LYMPHOCYTES % (AUTO) 32.8 % (21-51); MEAN CORPUSCULAR HEMOGLOBIN 30.4 PG (27.0-31.0); MEAN CORPUSCULAR HGB CONC 34.2 g/dL (33.0-36.5); MEAN PLATELET VOLUME 8.5 FL (7.4-10.4); MONOCYTES % (AUTO) 15.3 % (2-12); NEUTROPHILS # (AUTO) 3.2 X10'3 (1.8-7.7); NEUTROPHILS % (AUTO) 47.9 % (42-75); PLATELET COUNT 278 X10'3 (140-440); RED BLOOD COUNT 4.67 X10'6 (4.70-6.10); RED CELL DISTRIBUTION WIDTH 13.2 % (11.5-14.5); WHITE BLOOD COUNT 6.8 X10'3 (4.5-11.0)
[2020-11-16 16:14] LABS: ALANINE AMINOTRANSFERASE 28 U/L (12-78); ALBUMIN 3.5 G/DL (3.4-5.0); ALBUMIN/GLOBULIN RATIO 0.8 (1.1-1.5); ALKALINE PHOSPHATASE 81 IU/L (46-116); ANION GAP 8 (8-16); ASPARTATE AMINO TRANSFERASE 12 U/L (10-37); BILIRUBIN,TOTAL 0.2 MG/DL (0.1-1.0); BLOOD UREA NITROGEN 21 MG/DL (7-18); BUN/CREATININE RATIO 20.4 (5.4-32.0); CALCIUM 8.9 MG/DL (8.5-10.1); CHLORIDE 104 MMOL/L (99-107); CREATININE 1.03 MG/DL (0.60-1.10); GLUCOSE 84 MG/DL (70-104); POTASSIUM 4.4 MMOL/L (3.5-5.1); SODIUM 139 MMOL/L (135-145); TOTAL CARBON DIOXIDE 27.3 MMOL/L (24-32); TOTAL PROTEIN 8.1 G/DL (6.4-8.2); eGFR 83 ML/MIN
[2020-11-16 16:20] LABS: CLARITY,URINE CLEAR (Clear); COLOR,URINE YELLOW (Yellow); GLUCOSE, URINE NEGATIVE (Neg); KETONES,URINE NEGATIVE (Neg); LEUKOCYTE ESTERASE ,URINE NEGATIVE (Neg); NITRITES, URINE NEGATIVE (Neg); OCCULT BLOOD,URINE NEGATIVE (Neg); PH,URINE 5.5 (4.8-8.0); PROTEIN,URINE NEGATIVE (Neg); UROBILINOGEN,URINE 0.2 E.U/dL (0.2-1.0)
[2020-11-16 16:22] LABS: ETHANOL < 0.010 GM/DL (0.0-0.010)
[2020-11-16 16:23] LABS: UA COLLECTION TYPE CLN CATCH MIDSTREAM
--- NOTE | 2020-11-16 16:33 | NUR ---
PATIENT STATES THAT HE HAS NOT EATEN IN 4 DAYS. HE IS STAYING WITH A FRIEND FLACO [place]AR [place].
[2020-11-16 16:40] LABS: URINE AMPHETAMINE SCREEN POSITIVE (Neg); URINE BARBITUATE SCREEN NEGATIVE (Neg); URINE BENZODIAZEPINES SCREEN NEGATIVE (Neg); URINE CANNABINOID SCREEN POSITIVE (Neg); URINE COCAINE SCREEN NEGATIVE (Neg); URINE METHADONE SCREEN NEGATIVE (Neg); URINE OPIATE SCREEN NEGATIVE (Neg); URINE PHENCYCLIDINE SCREEN NEGATIVE (Neg)
[2020-11-16] MEDS ORDERED: BICT1TAB PO (16:41)
--- NOTE | 2020-11-16 16:45 | NUR ---
PATIENT DRANK 240 ML WHOLE MILK, 120 ML APPLE JUICE, 4 OZ YOGURT AND APPLESAUCE
--- NOTE | 2020-11-16 17:16 | NUR ---
PACKET FAXED TO [facility]
[2020-11-16] MEDS ORDERED: aripiprazole 400mg suspension ER syringe IM SCH (17:20)
[2020-11-16] MEDS ORDERED: diphenhydrAMINE 25mg capsule PO PRN (17:20)
--- NOTE | 2020-11-16 17:36 | NUR ---
SPOKE TO [facility], PHARMACIST. [facility] CARRIES IM ABILIFY. [facility] DOES NOT CARRY BIKTARVY. FLACO WILL TALK TO HIS CONTRIBUTION SOLICITOR AND SEE IF [facility] WILL SPECIAL ORDER BIKTARVY.
--- NOTE | 2020-11-16 17:40 | NUR ---
[facility] PHARMACIST UPDATED THAT PATIENT DOES NOT HAVE HIS HOME BIKTARVY MEDICATION. PATIENT STATES THAT HE RAN OUT 2 WEEKS AGO
--- NOTE | 2020-11-16 17:42 | NUR ---
PATIENT REPORTS HE LAST USED METHAMPHETAMINE YESTERDAY "NOT IV"
--- NOTE | 2020-11-16 17:42 | NUR ---
PATIENT IS PLEASANT AND CALM AND COOPERATIVE
--- NOTE | 2020-11-16 18:30 | NUR ---
pt is sleeping, does not want to discuss anything at this time. pt stated that he has no needs at this time.
[2020-11-16] MEDS: benztropine 1mg tablet PO SCH (20:32)
--- NOTE | 2020-11-16 22:17 | NUR ---
pt is sleeping, no s/s of distress noted.
--- NOTE | 2020-11-16 23:52 | NUR ---
pt continues to sleep, no s/s of distress noted. r/r unlabored.
--- NOTE | 2020-11-17 01:36 | NUR ---
assumed care BIKTARVY MEDICATION. PATIENT STATES THAT HE RAN OUT 2 WEEKS AGO NOT AVAILABLE
--- NOTE | 2020-11-17 02:10 | NUR ---
Assumed Pt care
--- NOTE | 2020-11-17 06:43 | NUR ---
laying in bed on left side with eyes closed, respirations normal.
[2020-11-17] MEDS: benztropine 1mg tablet PO SCH ×2 (08:45→20:00)
--- NOTE | 2020-11-17 08:50 | NUR ---
Patient awakened for meds and assessment, states he slept well, "not feeling as suicidal as I was just a little bit"
--- NOTE | 2020-11-17 10:09 | NUR ---
Resting with eyes closed
--- NOTE | 2020-11-17 11:38 | NUR ---
Pt interviewed, states he "feels scared", denies auditory hallucinations but admits to seeing "different spectrums". Aware he is in the hospital to receive mental health help. Denies any needs. Ate all of his breakfast.
--- NOTE | 2020-11-17 12:18 | NUR ---
States he wants to be released from hold and he has stuff he has to take care of like getting a job and getting to walk in health clinic
--- NOTE | 2020-11-17 13:36 | NUR ---
pacing in room; discussed the plan of care with him
[2020-11-17] MEDS ORDERED: OLANZapine 2.5MG tablet PO STA (15:44)
[2020-11-17] MEDS ORDERED: LORazepam 1 MG tablet PO STA (15:44)
--- NOTE | 2020-11-17 18:25 | NUR ---
Report received from AARON Baeza. He was brought from the main ER to bed 24. Patient is sitting quietly, eating his dinner.
--- NOTE | 2020-11-17 18:45 | NUR ---
Patient report was given to Sheila Nurse at [facility]. Patient is being considered as a possible admit there.
--- NOTE | 2020-11-17 19:00 | NUR ---
Patient is sleepy, he ate dinner, declined interview, rolled over and went to sleep.
--- NOTE | 2020-11-17 20:50 | NUR ---
Patient accepted to [facility] on 11/18 when a bed opens up. [facility], N/P is the accepting provider. No report (nurse to nurse,) has been done.
--- NOTE | 2020-11-17 21:11 | NUR ---
Patient is sleeping on his left side. In direct view from the nursing station.
--- NOTE | 2020-11-17 22:57 | NUR ---
breaking primary RN- will cont to monitor pt status
--- NOTE | 2020-11-17 23:31 | NUR ---
Patient awoke, took Rx cogentin, refused benedryl, returned to sleep.
--- NOTE | 2020-11-17 23:35 | NUR ---
Patient given warm blanket. He is sleeping quietly now on his left side. In view from nursing station.
--- NOTE | 2020-11-18 03:24 | NUR ---
HERNAN Burger from [facility] called for report. Addendum: 11/18/20 at 0334 by CASSIDY This editorial writer advised HERNAN Burger that this patient was accepted to [facility] tomorrow, he verified this information. No further action/eval needed.
--- NOTE | 2020-11-18 05:30 | NUR ---
Patient is sleeping quietly on his right side.
[2020-11-18 06:05] VITALS: BP 115/72
[2020-11-18] MEDS: benztropine 1mg tablet PO SCH (09:09)
[2020-11-18] MEDS ORDERED: LORazepam 1 MG tablet PO PRN (10:10)
== END 2020-11-18 11:20 ==
LOC: ER 15:26
DX: F41.9 Anxiety disorder, unspecified (principal); Z20.822 Contact with and (suspected) exposure to COVID-19; F31.9 Bipolar disorder, unspecified; R45.851 Suicidal ideations; R44.0 Auditory hallucinations; F12.90 Cannabis use, unspecified, uncomplicated; F15.90 Other stimulant use, unspecified, uncomplicated; Z56.0 Unemployment, unspecified; Z72.89 Other problems related to lifestyle; Z88.0 Allergy status to penicillin; Z79.899 Other long term (current) drug therapy
CPT/HCPCS: 80053; 80305; 80320; 81003; 84443; 85025; 87635; 96372; 99285; C9803

== ENCOUNTER 2021-02-25 21:01 | Emergency (ER) | payer MEDICAID ==
[~2021-02-25] VITALS: Ht 157.5 cm; Wt 62.1 kg
[~2021-02-25 21:01] MED LIST changes: +BICT1TAB PO; +DIPH-1055 PO; -DIPH25CA46 PO; -IBUP-1984 PO; -LORA-269 PO; -ROBDML PO
[2021-02-25 21:33] VITALS: BP 127/85
[2021-02-25] MEDS ORDERED: OLANZapine 2.5MG tablet PO STA (22:35)
[2021-02-25 22:47] LABS: BASOPHILS % (AUTO) 0.3 % (0-1); EOSINOPHILS # (AUTO) 0.2 X10'3 (0-0.9); EOSINOPHILS % (AUTO) 2.8 % (0-6); HEMATOCRIT 39.1 % (42.0-52.0); HEMOGLOBIN 13.4 g/dl (14.0-17.9); LYMPHOCYTES # (AUTO) 1.3 X10'3 (1.1-4.8); LYMPHOCYTES % (AUTO) 20.5 % (21-51); MEAN CORPUSCULAR HEMOGLOBIN 30.7 PG (27.0-31.0); MEAN CORPUSCULAR HGB CONC 34.3 g/dL (33.0-36.5); MEAN CORPUSCULAR VOLUME 89.6 FL (78-98); MEAN PLATELET VOLUME 8.3 FL (7.4-10.4); MONOCYTES # (AUTO) 1.1 X10'3 (0-0.9); MONOCYTES % (AUTO) 17.7 % (2-12); NEUTROPHILS # (AUTO) 3.8 X10'3 (1.8-7.7); NEUTROPHILS % (AUTO) 58.7 % (42-75); PLATELET COUNT 267 X10'3 (140-440); RED BLOOD COUNT 4.37 X10'6 (4.70-6.10); RED CELL DISTRIBUTION WIDTH 13.8 % (11.5-14.5); WHITE BLOOD COUNT 6.4 X10'3 (4.5-11.0)
--- NOTE | 2021-02-25 22:58 | NUR ---
VERIFIED DOSE OF ZYPREXA W PA, 20 MG IS DOSE HE WANTS, PT TOOK WITHOUT DIFFICULTY
[2021-02-25 23:09] LABS: ALANINE AMINOTRANSFERASE 821 U/L (12-78); ALKALINE PHOSPHATASE 103 IU/L (46-116); ANION GAP 10 (8-16); ASPARTATE AMINO TRANSFERASE 292 U/L (10-37); BLOOD UREA NITROGEN 18 MG/DL (7-18); BUN/CREATININE RATIO 18.4 (5.4-32.0); CALCIUM 8.7 MG/DL (8.5-10.1); CHLORIDE 102 MMOL/L (99-107); CREATININE 0.98 MG/DL (0.60-1.10); GLUCOSE 88 MG/DL (70-104); POTASSIUM 3.7 MMOL/L (3.5-5.1); SODIUM 139 MMOL/L (135-145); TOTAL CARBON DIOXIDE 26.9 MMOL/L (24-32); TOTAL PROTEIN 8.2 G/DL (6.4-8.2); eGFR 87 ML/MIN
[2021-02-25 23:14] LABS: ETHANOL < 0.010 GM/DL (0.0-0.010)
[2021-02-26 00:01] LABS: TOTAL CELLS COUNTED 100
[2021-02-26 00:02] LABS: PLATELET ESTIMATE NORMAL
--- NOTE | 2021-02-26 02:54 | NUR ---
pt asleep, resp even and unlabored. sitter outside the room.
--- NOTE | 2021-02-26 03:13 | NUR ---
pt awake, given grahm crackers and a cup of ice water as requested.
--- NOTE | 2021-02-26 04:23 | NUR ---
pt asleep in room, resp even and unlabored, cryptographic center specialist outside the room.
--- NOTE | 2021-02-26 06:29 | NUR ---
Patient resting quietly, no signs/symptoms of distress.
--- NOTE | 2021-02-26 07:25 | NUR ---
patient escorted to bathroom, urine sample obtained.
[2021-02-26 07:39] LABS: CLARITY,URINE CLEAR (Clear); GLUCOSE, URINE NEGATIVE (Neg); KETONES,URINE 15 mg/dl (Neg); LEUKOCYTE ESTERASE ,URINE NEGATIVE (Neg); NITRITES, URINE NEGATIVE (Neg); OCCULT BLOOD,URINE NEGATIVE (Neg); PH,URINE 5.5 (4.8-8.0); PROTEIN,URINE TRACE mg/dl (Neg)
[2021-02-26 07:51] LABS: COLOR,URINE DARK YELLOW (Yellow); UA COLLECTION TYPE URINAL
[2021-02-26 07:57] LABS: URINE AMPHETAMINE SCREEN POSITIVE (Neg); URINE BARBITUATE SCREEN NEGATIVE (Neg); URINE BENZODIAZEPINES SCREEN NEGATIVE (Neg); URINE CANNABINOID SCREEN POSITIVE (Neg); URINE COCAINE SCREEN NEGATIVE (Neg); URINE METHADONE SCREEN NEGATIVE (Neg); URINE OPIATE SCREEN NEGATIVE (Neg); URINE PHENCYCLIDINE SCREEN NEGATIVE (Neg)
[2021-02-26 07:58] LABS: BACTERIA,URINE NONE SEEN /HPF (Neg); MUCUS STRANDS MODERATE /LPF (Neg); RBC,URINE NONE SEEN /HPF (0-2); SQUAMOUS EPITHELIAL CELL,UR NONE SEEN /LPF (FEW); WBC,URINE 0-4 /HPF (0-4)
--- NOTE | 2021-02-26 08:15 | NUR ---
Patient resting quietly, no signs/symptoms of distress.
== END 2021-02-26 18:20 | disposition home or self-care (01) ==
LOC: ER 21:02
DX: F29 Unspecified psychosis not due to a substance or known physiological condition (principal); Z20.822 Contact with and (suspected) exposure to COVID-19; F20.9 Schizophrenia, unspecified; R74.01 Elevation of levels of liver transaminase levels; F41.9 Anxiety disorder, unspecified; F31.9 Bipolar disorder, unspecified; F12.90 Cannabis use, unspecified, uncomplicated; Z56.0 Unemployment, unspecified; Z72.89 Other problems related to lifestyle; Z98.890 Other specified postprocedural states; Z88.0 Allergy status to penicillin; Z79.899 Other long term (current) drug therapy
CPT/HCPCS: 36415; 80053; 80305; 80320; 81001; 84443; 85007; 85025; 87426; 99284

== ENCOUNTER 2021-03-04 23:25 | Emergency (ER) | payer MEDICAID ==
[~2021-03-04] VITALS: Ht 157.5 cm; Wt 64.4 kg
[2021-03-05] MEDS ORDERED: bacitracin 15gm ointment TP ONE (01:10)
[2021-03-05 02:20] VITALS: BP 144/96
== END 2021-03-05 02:22 | disposition home or self-care (01) ==
LOC: ER 23:25
DX: S61.011A Laceration without foreign body of right thumb without damage to nail, initial encounter (principal); F41.9 Anxiety disorder, unspecified; F31.9 Bipolar disorder, unspecified; F20.9 Schizophrenia, unspecified; F12.90 Cannabis use, unspecified, uncomplicated; Z72.89 Other problems related to lifestyle; Z98.890 Other specified postprocedural states; Z56.0 Unemployment, unspecified; Z88.0 Allergy status to penicillin; Z79.899 Other long term (current) drug therapy; W45.8XXA Other foreign body or object entering through skin, initial encounter; Y93.89 Activity, other specified; Y92.89 Other specified places as the place of occurrence of the external cause; Y99.8 Other external cause status
CPT/HCPCS: 99282

== ENCOUNTER 2021-03-08 15:53 | Emergency (ER) | payer MEDICAID ==
[~2021-03-08] VITALS: Ht 157.5 cm; Wt 59.1 kg
[2021-03-08 16:36] LABS: BASOPHILS % (AUTO) 0.3 % (0-1); EOSINOPHILS # (AUTO) 0.2 X10'3 (0-0.9); HEMATOCRIT 38.9 % (42.0-52.0); HEMOGLOBIN 13.3 g/dl (14.0-17.9); LYMPHOCYTES # (AUTO) 1.6 X10'3 (1.1-4.8); LYMPHOCYTES % (AUTO) 27.8 % (21-51); MEAN CORPUSCULAR HEMOGLOBIN 30.9 PG (27.0-31.0); MEAN CORPUSCULAR HGB CONC 34.1 g/dL (33.0-36.5); MEAN CORPUSCULAR VOLUME 90.7 FL (78-98); MEAN PLATELET VOLUME 8.2 FL (7.4-10.4); MONOCYTES # (AUTO) 0.7 X10'3 (0-0.9); MONOCYTES % (AUTO) 12.1 % (2-12); NEUTROPHILS # (AUTO) 3.2 X10'3 (1.8-7.7); NEUTROPHILS % (AUTO) 55.8 % (42-75); PLATELET COUNT 294 X10'3 (140-440); RED BLOOD COUNT 4.29 X10'6 (4.70-6.10); RED CELL DISTRIBUTION WIDTH 13.9 % (11.5-14.5); WHITE BLOOD COUNT 5.8 X10'3 (4.5-11.0)
[2021-03-08 16:57] LABS: ALANINE AMINOTRANSFERASE 103 U/L (12-78); ALBUMIN 3.5 G/DL (3.4-5.0); ALBUMIN/GLOBULIN RATIO 0.8 (1.1-1.5); ALKALINE PHOSPHATASE 76 IU/L (46-116); ANION GAP 7 (8-16); ASPARTATE AMINO TRANSFERASE 18 U/L (10-37); BILIRUBIN,TOTAL 0.4 MG/DL (0.1-1.0); BLOOD UREA NITROGEN 15 MG/DL (7-18); BUN/CREATININE RATIO 15.3 (5.4-32.0); CALCIUM 8.4 MG/DL (8.5-10.1); CHLORIDE 105 MMOL/L (99-107); CREATININE 0.98 MG/DL (0.60-1.10); POTASSIUM 3.8 MMOL/L (3.5-5.1); SODIUM 139 MMOL/L (135-145); TOTAL CARBON DIOXIDE 27.4 MMOL/L (24-32); TOTAL PROTEIN 7.7 G/DL (6.4-8.2); eGFR 87 ML/MIN
[2021-03-08 17:01] LABS: GLUCOSE 91 MG/DL (70-104)
[2021-03-08 17:05] LABS: ETHANOL < 0.010 GM/DL (0.0-0.010)
--- NOTE | 2021-03-08 18:30 | NUR ---
Assumed care. Patient is sleeping. Patient had finished his dinner.
[2021-03-08 18:40] LABS: URINE AMPHETAMINE SCREEN POSITIVE (Neg); URINE BARBITUATE SCREEN NEGATIVE (Neg); URINE BENZODIAZEPINES SCREEN NEGATIVE (Neg); URINE CANNABINOID SCREEN POSITIVE (Neg); URINE COCAINE SCREEN NEGATIVE (Neg); URINE METHADONE SCREEN NEGATIVE (Neg); URINE OPIATE SCREEN NEGATIVE (Neg); URINE PHENCYCLIDINE SCREEN NEGATIVE (Neg)
--- NOTE | 2021-03-08 19:40 | NUR ---
Patient sleeping on his left side. He self re- positions. No obvious distress.
--- NOTE | 2021-03-08 21:10 | NUR ---
Breaking primary RN; patient sleeping on his side, respiratory rate 14 unlabored.
--- NOTE | 2021-03-08 21:47 | NUR ---
[facility] Will not interview patient tonight. Patient will be interviewed in am by [facility]. Patient continues to sleep. No distress.
--- NOTE | 2021-03-09 01:47 | NUR ---
Patient sleeping quietly on his right side. In view from the nurses station.
--- NOTE | 2021-03-09 03:00 | NUR ---
Patient sleeping on his left side. No distress.
--- NOTE | 2021-03-09 04:30 | NUR ---
Up to bathroom to void. No distress. Patient will not submit to 1:1 discussion. He returned to bed to sleep.
[2021-03-09 05:38] VITALS: BP 110/67
--- NOTE | 2021-03-09 05:48 | NUR ---
Sleeping quietly, no distress. In direct view from nurses station.
[2021-03-09] MEDS ORDERED: diphenhydrAMINE 25mg capsule PO PRN (06:15)
[2021-03-09] MEDS ORDERED: benztropine 1mg tablet PO SCH (08:00)
--- NOTE | 2021-03-09 08:16 | NUR ---
UP EATING BREAKFAST, DENIES COMPLAINTS
[2021-03-17] MEDS ORDERED: aripiprazole 400mg suspension ER syringe IM SCH (08:00)
== END 2021-03-09 09:25 | disposition home or self-care (01) ==
LOC: ER 15:53
DX: R45.851 Suicidal ideations (principal); F31.9 Bipolar disorder, unspecified; F12.10 Cannabis abuse, uncomplicated; Z56.0 Unemployment, unspecified; Z88.0 Allergy status to penicillin; Z79.899 Other long term (current) drug therapy
CPT/HCPCS: 36415; 80053; 80305; 80320; 84443; 85025; 99285